=== PATIENT | male | born 1955 | race American Indian/Alaskan Native ===

== ENCOUNTER 2022-03-24 00:01 | Emergency (ER) | payer MEDICARE ==
[2022-03-24 00:16] VITALS: BP 132/74
[2022-03-24 01:10] LABS: Basophils # (Auto) 0.1 K/mm3 (0.0-0.1); Basophils % (Auto) 1.4 % (0.0-1.8); Eosinophils # (Auto) 0.4 K/mm3 (0.0-0.4); Eosinophils % (Auto) 9.6 % (0.0-4.3); Hematocrit 38.1 % (35.5-45.6); Lymphocytes # (Auto) 0.9 K/mm3 (1.2-5.4); Lymphocytes % (Auto) 24.7 % (13.4-35.0); Mean Corpuscular HGB Conc 34 % (32-34); Mean Corpuscular Volume 90 fl (84-94); Monocytes # (Auto) 0.3 K/mm3 (0.0-0.8); Monocytes % (Auto) 6.8 % (0.0-7.3); Platelet Count 216 K/mm3 (140-440); Red Blood Count 4.25 M/mm3 (3.65-5.03); Red Cell Distribution Width 14.2 % (13.2-15.2)
--- NOTE | 2022-03-24 01:10 | XRay Report ---
CHEST 2 VIEWS INDICATION / CLINICAL INFORMATION: CP. COMPARISON: None available. FINDINGS: SUPPORT DEVICES: None. HEART / MEDIASTINUM: Borderline to mild cardiomegaly. LUNGS / PLEURA: No significant pulmonary or pleural abnormality. No pneumothorax. BONES: No significant osseous abnormality. ADDITIONAL FINDINGS: No significant additional findings. IMPRESSION: 1. Borderline to mild cardiomegaly. No active cardiopulmonary disease. Signer Name: Danny Moe II, MD Signed: 03/24/2022 1:05 AM Workstation Name: [id number]
[2022-03-24 01:33] LABS: Alanine Aminotransferase 12 units/L (7-56); Albumin 4.2 g/dL (3.9-5); BUN/Creatinine Ratio 16; Blood Urea Nitrogen 24 mg/dL (9-20); Hemolysis Index 19
--- NOTE | 2022-03-24 10:49 | Electrocardiograph Report ---
[facility] Test Date: 2022-03-24 Test Time: 00:37:17 Pat Name: GLENNY COHN Department: Room: Gender: M Refiner Operator: KOMAL Dumont : 1955 Requested By: LOUISA COOPER Order Number: [id number] Reading MD: Dereje Ramsey Measurements Intervals [place] Rate: 78 P: 121 LA: 61 QRS: -49 QRSD: 129 T: 139 QT: 425 QTc: 485 Interpretive Statements Sinus rhythm Supraventricular bigeminy LVH with IVCD, LAD and secondary repol abnrm Anterior ST elevation, probably due to LVH No previous ECG available for comparison Electronically Signed On 03-24-2022 10:49:06 EDT by Dereje Ramsey
== END 2022-03-24 09:00 | disposition left against medical advice (07) ==
LOC: ED 00:01
DX: M54.9 Dorsalgia, unspecified (principal); R07.9 Chest pain, unspecified; Z53.21 Procedure and treatment not carried out due to patient leaving prior to being seen by health care provider
CPT/HCPCS: 36415; 71046; 80053; 84484; 85025; 93005